=== PATIENT | female | born 1990 | race Caucasian/White ===

== ENCOUNTER 2016-10-22 09:57 | Emergency (ER) | payer MEDICAID, OTHER ==
[~2016-10-22] VITALS: Ht 172.7 cm; Wt 58.5 kg
[2016-10-22 09:59] VITALS: BP 134/84
[2016-10-22] MEDS ORDERED: KETOROLAC 30 MG/1 ML IM ONE (10:30)
[2016-10-22] MEDS ORDERED: ONDANSETRON ODT 4 MG PO ONE (10:30)
[2016-10-22] MEDS ORDERED: HYDROmorphone 1 MG/ML, 1ML IM ONE (10:30)
[2016-10-22] MEDS ORDERED: KETOROLAC 30 MG/1 ML ONE (10:34)
[2016-10-22] MEDS ORDERED: ONDANSETRON ODT 4 MG ONE (10:34)
[2016-10-22] MEDS ORDERED: HYDROmorphone 1 MG/ML, 1ML ONE ×2 (10:34→12:01)
[2016-10-22 10:45] LABS: PATH.CAST-FLAG NOT PRESENT; SPERM-FLAG NOT PRESENT; SRC-FLAG NOT PRESENT; XTAL-FLAG NOT PRESENT; YLC-FLAG NOT PRESENT
[2016-10-22 10:59] LABS: BLOOD UREA NITROGEN 6 mg/dL (7-18)
[2016-10-22 11:29] LABS: HEMATOCRIT 38.2 % (34.6-47.8); HEMOGLOBIN 12.9 g/dL (11.7-16.4); WHITE BLOOD COUNT 13.1 x10^3/uL (3.4-10)
== END 2016-10-22 12:08 | disposition home or self-care (01) ==
LOC: ED 10:57
DX: N10 Acute pyelonephritis (principal); F11.10 Opioid abuse, uncomplicated; F15.10 Other stimulant abuse, uncomplicated; Z87.442 Personal history of urinary calculi; Z88.8 Allergy status to other drugs, medicaments and biological substances
CPT/HCPCS: 36415; 74176; 80048; 81001; 82040; 84703; 85025; 87077; 87086; 96372; 99285; J1170; J1885; Q0162; 87186

== ENCOUNTER 2017-06-11 09:53 | Emergency (ER) | payer MEDICAID ==
[~2017-06-11] VITALS: Ht 172.7 cm; Wt 63.2 kg
[2017-06-11 09:59] VITALS: BP 142/87
[2017-06-11] MEDS ORDERED: IBUPROFEN 200 MG TABLET PO ONE (10:30)
[2017-06-11] MEDS ORDERED: HYDROcodone/APAP 5/325 TABLET PO ONE (10:30)
== END 2017-06-11 10:47 | disposition home or self-care (01) ==
LOC: ED 10:33
DX: K08.89 Other specified disorders of teeth and supporting structures (principal)
CPT/HCPCS: 99283

== ENCOUNTER 2018-10-13 22:23 | Emergency (ER) | payer MEDICAID ==
[~2018-10-13] VITALS: Ht 175.3 cm; Wt 72.5 kg
[2018-10-14 02:05] VITALS: BP 124/73
== END 2018-10-14 02:13 | disposition home or self-care (01) ==
LOC: ED 10-14 00:54
DX: S39.012A Strain of muscle, fascia and tendon of lower back, initial encounter (principal); M54.41 Lumbago with sciatica, right side; X58.XXXA Exposure to other specified factors, initial encounter; Y93.89 Activity, other specified; Y92.89 Other specified places as the place of occurrence of the external cause; Y99.8 Other external cause status
CPT/HCPCS: 72110; 72158; 81003; 96372; 99284; A9585; J1885